=== PATIENT | female | born 1995 ===

== ENCOUNTER 2017-01-28 15:52 | Emergency (ER) | payer MEDICAID ==
[~2017-01-28] VITALS: Ht 160 cm; Wt 72.6 kg
--- NOTE | 2017-01-28 16:28 | NUR ---
DR BOWMAN AT THE BEDSIDE FOR EVAL AND EXAM.
--- NOTE | 2017-01-28 16:38 | NUR ---
PT SIGNED CONSENT WAIVER FOR , PLACE IN THE CHART.
[2017-01-28 17:31] VITALS: BP 118/69
--- NOTE | 2017-01-28 17:32 | NUR ---
Patient discharged to home in stable conditon. Written and verbal after care instructions given. Patient verbalizes understanding of instructions.
== END 2017-01-28 17:32 | disposition home or self-care (01) ==
LOC: ER 15:54
DX: M79.671 Pain in right foot (principal); F10.20 Alcohol dependence, uncomplicated; F17.200 Nicotine dependence, unspecified, uncomplicated
CPT/HCPCS: 73630; A4663